=== PATIENT | female | born 1955 | race Caucasian/White ===

== ENCOUNTER → 2017-02-24 | Outpatient (CLI) | payer BC ==
[~2017-02-24] MED LIST: 1-ME1LIQ PO; ADVA100A INH; AMOX500T2 PO; COZA100T PO; HYDR12.56 PO; MONT10TA2 PO; PRED10PA PO; VENTAER INH
== END ==
LOC: HRSP 09:59
PROVIDERS: ATTEND Internal Medicine
DX: J45.909 Unspecified asthma, uncomplicated (principal)
CPT/HCPCS: 94060; 94620; 94726; 94729; 95012

== ENCOUNTER → 2017-08-02 | Outpatient (CLI) | payer BC | LOC: HRSP 09:34 | PROVIDERS: ATTEND Internal Medicine | DX: J45.909 Unspecified asthma, uncomplicated (principal) | CPT/HCPCS: 94060; 94726; 94729; 95012 ==